=== PATIENT | male | born 1990 | race African-American/Black ===

== ENCOUNTER 2021-06-26 11:17 | Emergency (ER) | payer SELFPAY ==
[2021-06-26 22:09] LABS: SARS-CoV-2 PCR by NAA DETECTED (NotDetected)
== END 2021-06-26 12:40 | disposition home or self-care (01) ==
LOC: CSHERS 11:17
DX: U07.1 COVID-19 (principal)
CPT/HCPCS: 87804; 99283; U0003; U0005

== ENCOUNTER 2025-01-15 14:36 | Emergency (ER) | payer SELFPAY ==
[2025-01-15 14:56] LABS: Glucose, Urine (Dipstick) Normal (Negative); Leukocyte 100 (Negative); Protein, Urine (Dipstick) 15 mg/dl (Neg-Trace); Specific Gravity, Urine 1.015 (1.005-1.030)
[2025-01-15] MEDS ORDERED: cefTRIAXone (ROCEPHIN) 500 MG VIAL ONE (15:12)
[2025-01-15] MEDS ORDERED: Azithromycin 250 MG TAB ONE (15:12)
[2025-01-15 15:42] LABS: Bacteria/HPF None Seen HPF (None Seen); CAUTI Indications for Culture Pelvic or flank pain; Mucous/LPF Rare LPF (<2+); RBC/HPF 0-3 HPF (0-3); Urine Culture Reflex No No
[2025-01-15 23:52] LABS: Chlam.trachomatis by PCR,Urine Not Detected (NotDetected); GC N.gonorrhoeae PCR,UrineVOID Not Detected (NotDetected)
== END 2025-01-15 15:22 | disposition home or self-care (01) ==
LOC: CSHERS 14:36
DX: Z20.2 Contact with and (suspected) exposure to infections with a predominantly sexual mode of transmission (principal); F17.200 Nicotine dependence, unspecified, uncomplicated
CPT/HCPCS: 81001; 87491; 87591; 96372; 99283; J0696